=== PATIENT | female | born 2000 | race American Indian/Alaskan Native ===

== ENCOUNTER 2020-09-06 18:54 | Emergency (ER) | payer SELFPAY ==
[2020-09-06 20:14] VITALS: BP 104/57
--- NOTE | 2020-09-06 20:20 | Emergency Department Report ---
ED Recheck HPI - General Chief Complaint: Medical Clearance Stated Complaint: SEIZURE MED REFILL Time Seen by Provider: 09/06/20 20:15 Source: patient Mode of arrival: Ambulatory Limitations: No Limitations - History of Present Illness Initial Comments: Patient is a 19-year-old female presents emergency room for seizure medication refill. She states that she is supposed to be taking Trileptal 300 mg twice daily. She states that she has been out of her medication for 2 days. She states that she was just concerned and felt like she was going to have a seizure but has not had a seizure. She denies any symptoms at all currently. No other past medical history. No allergies to medications. Last menstrual cycle 08/23/2020. She has a prescription bottle with her. She states that her primary care doctor in [place] was previously prescribing her this medication. She states that she moved 1 month ago. - Related Data Previous Rx's Medication Instructions Recorded Last Taken Type OXcarbazepine [Trileptal] 300 mg PO BID #60 tablet 09/06/20 Unknown Rx Allergies Allergy/AdvReac Type Severity Reaction Status Date / Time No Known Allergies Allergy Unverified 09/06/20 20:36 ED Review of Systems ROS: Stated complaint: SEIZURE MED REFILL Other details as noted in HPI Comment: All other systems reviewed and negative ED Past Medical Hx - Past Medical History Previous Medical History?: Yes Hx Seizures: Yes - Surgical History Past Surgical History?: No - Social History Smoking Status: Never Smoker Substance Use Type: None - Medications Home Medications: Home Medications Medication Instructions Recorded Confirmed Last Taken Type OXcarbazepine [Trileptal] 300 mg PO BID #60 tablet 09/06/20 Unknown Rx ED Physical Exam - General Limitations: No Limitations General appearance: alert, in no apparent distress - Head Head exam: Present: atraumatic, normocephalic - Eye Eye exam: Present: normal appearance - ENT ENT exam: Present: mucous membranes moist - Respiratory Respiratory exam: Absent: respiratory distress, accessory muscle use - Neurological Exam Neurological exam: Present: alert, oriented X3 - Psychiatric Psychiatric exam: Present: normal affect, normal mood - Skin Skin exam: Present: warm, dry, intact ED Course Vital Signs 09/06/20 20:02 Temperature 99.4 F Pulse Rate 86 Respiratory 18 Rate Blood Pressure 104/57 O2 Sat by Pulse 99 Oximetry ED Recheck [facility] - Medical Decision Making Patient is a 19-year-old female presents emergency room for seizure medication refill. She states that she is supposed to be taking Trileptal 300 mg twice daily. She states that she has been out of her medication for 2 days. She states that she was just concerned and felt like she was going to have a seizure but has not had a seizure. She denies any symptoms at all currently. No other past medical history. No allergies to medications. Last menstrual cycle 08/23/2020. She has a prescription bottle with her. She states that her primary care doctor in [place] was previously prescribing her this medication. She states that she moved 1 month ago. Vitals are normal. Patient given refill of her home medication. Advised patient Please take medication as prescribed. Follow-up with your primary care doctor for management of your condition. Return to emergency room for new or symptoms. Critical care attestation.: If time is entered above; I have spent that time in minutes in the direct care of this critically ill patient, excluding procedure time. ED Disposition Clinical Impression: Medication refill, Hx of seizure disorder Disposition: DC-01 TO HOME OR SELFCARE Is pt being admited?: No Does the pt Need Aspirin: No Condition: Stable Additional Instructions: Please take medication as prescribed. Follow-up with your primary care doctor for management of your condition. Return to emergency room for new or symptoms. Prescriptions: OXcarbazepine [Trileptal] 300 mg PO BID #60 tablet Referrals: MARIJA DUNN MD [Staff Physician] - 3-5 Days [facility] [Provider Group] - 3-5 Days [facility], [LAB/CONTRACT] - 3-5 Days [facility] [Outside] - 3-5 Days Time of Disposition: 20:18 Print Language: TURKMEN
== END 2020-09-06 20:38 | disposition home or self-care (01) ==
LOC: ED 18:54
DX: G40.909 Epilepsy, unspecified, not intractable, without status epilepticus (principal); Z79.899 Other long term (current) drug therapy; Z76.0 Encounter for issue of repeat prescription
CPT/HCPCS: 99281

== ENCOUNTER 2020-10-30 17:10 | Emergency (ER) | payer SELFPAY ==
[2020-10-30 17:47] VITALS: BP 100/71
--- NOTE | 2020-10-30 18:01 | Emergency Department Report ---
ED General Adult HPI - General Chief complaint: Seizure Stated complaint: SEIZURE Time Seen by Provider: 10/30/20 17:56 Source: patient Mode of arrival: Ambulatory Limitations: No Limitations - History of Present Illness Initial comments: Patient presents to the ER requesting a refill on her seizure medication. Patient states that she takes Trileptal and she took her last tablet yesterday. Patient states that she recently moved here from [facility] does not currently have a local primary care doctor. Patient denies any recent seizures. She denies any symptoms currently. MD Complaint: Medication refill -: days(s) (1) - Related Data Previous Rx's Medication Instructions Recorded Last Taken Type OXcarbazepine [Trileptal] 300 mg PO BID #90 tablet 10/30/20 Unknown Rx Allergies Allergy/AdvReac Type Severity Reaction Status Date / Time No Known Allergies Allergy Unverified 09/06/20 20:36 ED Review of Systems ROS: Stated complaint: SEIZURE Other details as noted in HPI Comment: All other systems reviewed and negative Constitutional: denies: chills, fever Eyes: denies: eye pain, eye discharge, vision change ENT: denies: ear pain, throat pain Respiratory: denies: cough, shortness of breath, wheezing Cardiovascular: denies: chest pain, palpitations Gastrointestinal: denies: abdominal pain, nausea, diarrhea Genitourinary: denies: urgency, dysuria, frequency, hematuria, discharge, abnormal menses, dyspareunia Musculoskeletal: denies: back pain, joint swelling, arthralgia Neurological: denies: headache, weakness, numbness, paresthesias, confusion, abnormal gait, vertigo Psychiatric: denies: anxiety, depression, visual hallucinations, homicidal thoughts, suicidal thoughts Hematological/Lymphatic: denies: easy bleeding, easy bruising ED Past Medical Hx - Past Medical History Previous Medical History?: Yes Hx Seizures: Yes - Surgical History Past Surgical History?: No - Social History Smoking Status: Never Smoker Substance Use Type: None - Medications Home Medications: Home Medications Medication Instructions Recorded Confirmed Last Taken Type OXcarbazepine [Trileptal] 300 mg PO BID #90 tablet 10/30/20 Unknown Rx ED Physical Exam - General Limitations: No Limitations General appearance: alert, in no apparent distress - Head Head exam: Present: atraumatic, normocephalic, normal inspection - Eye Eye exam: Present: normal appearance, PERRL, EOMI Pupils: Present: normal accommodation - Neck Neck exam: Present: normal inspection, full ROM - Respiratory Respiratory exam: Absent: respiratory distress - Cardiovascular Cardiovascular Exam: Present: regular rate - Neurological Exam Neurological exam: Present: alert, oriented X3, CN II-XII intact, normal gait - Psychiatric Psychiatric exam: Present: normal affect, normal mood - Skin Skin exam: Present: intact ED Course Vital Signs 10/30/20 17:44 Temperature 98.4 F Pulse Rate 71 Respiratory 18 Rate Blood Pressure 100/71 [Right] O2 Sat by Pulse 98 Oximetry Critical care attestation.: If time is entered above; I have spent that time in minutes in the direct care of this critically ill patient, excluding procedure time. ED Disposition Clinical Impression: Medication refill, Hx of seizure disorder Disposition: TO HOME OR SELFCARE Is pt being admited?: No Does the pt Need Aspirin: No Condition: Stable Instructions: Medicine Refill at the Emergency Department Additional Instructions: Start taking medications today. FOllow up with PCP. Return to ED if worse. Prescriptions: OXcarbazepine [Trileptal] 300 mg PO BID #90 tablet Referrals: MARIJA DUNN MD [Staff Physician] - 3-5 Days [facility] [Provider Group] - 3-5 Days Time of Disposition: 18:01
== END 2020-10-30 18:23 | disposition home or self-care (01) ==
LOC: ED 17:10
DX: G40.909 Epilepsy, unspecified, not intractable, without status epilepticus (principal); Z76.0 Encounter for issue of repeat prescription; Z79.899 Other long term (current) drug therapy
CPT/HCPCS: 99281

== ENCOUNTER 2021-01-21 03:15 | Emergency (ER) | payer OTHER ==
[2021-01-21 04:07] VITALS: BP 105/73
--- NOTE | 2021-01-21 04:07 | Emergency Department Report ---
ED General Adult HPI - General Chief complaint: Medical Clearance Stated complaint: SEIZURE Source: patient Mode of arrival: Ambulatory Limitations: No Limitations - History of Present Illness Initial comments: Patient is a 20-year-old -[place]ian female with a history of seizures who presents to the ED for medication refill after she ran out of her medications 2 days ago. Patient states that she may have experienced a seizure episode about 2 hours ago while asleep at home and decided come to the ED for a refill of her prescriptions. Patient states that she recently relocated to [facility] and has not established care with any neurologist at this time. Patient denies dizziness, syncope, chest pain, headache, change in vision, nausea and vomiting, abdominal pain, fever or chills, head injury or fall, palpitations, chest pain or shortness of breath. MD Complaint: Seizure disorder, medication refill -: Sudden, days(s) (2) Location: head Radiation: non-radiation Severity scale (0 -10): 0 Consistency: intermittent Improves with: none Worsens with: none Associated Symptoms: denies other symptoms, seizure. denies: confusion, chest pain, cough, diaphoresis, fever/chills, headaches, loss of appetite, malaise, nausea/vomiting, rash, shortness of breath, syncope, weakness, other Treatments Prior to Arrival: NSAID - Related Data Previous Rx's Medication Instructions Recorded Last Taken Type OXcarbazepine [Trileptal] 300 mg PO BID #120 tablet 01/21/21 Unknown Rx Allergies Allergy/AdvReac Type Severity Reaction Status Date / Time No Known Allergies Allergy Unverified 09/06/20 20:36 ED Review of Systems ROS: Stated complaint: SEIZURE Other details as noted in HPI Constitutional: denies: chills, fever Eyes: denies: eye pain, eye discharge, vision change ENT: denies: ear pain, throat pain, congestion Respiratory: denies: cough, shortness of breath, SOB with exertion, wheezing Cardiovascular: denies: chest pain, palpitations Endocrine: no symptoms reported Gastrointestinal: denies: abdominal pain, nausea, vomiting, diarrhea Genitourinary: denies: urgency, dysuria, discharge Musculoskeletal: denies: back pain, joint swelling, arthralgia Skin: denies: rash, lesions Neurological: other (seizures). denies: headache, weakness, paresthesias Psychiatric: denies: anxiety, depression, auditory hallucinations, visual hallucinations, suicidal thoughts Hematological/Lymphatic: denies: easy bleeding, easy bruising ED Past Medical Hx - Past Medical History Hx Seizures: Yes - Social History Smoking Status: Never Smoker Substance Use Type: None - Medications Home Medications: Home Medications Medication Instructions Recorded Confirmed Last Taken Type OXcarbazepine [Trileptal] 300 mg PO BID #120 tablet 01/21/21 Unknown Rx ED Physical Exam - General Limitations: No Limitations General appearance: alert, in no apparent distress - Head Head exam: Present: atraumatic, normocephalic, normal inspection - Eye Eye exam: Present: normal appearance, PERRL, EOMI Pupils: Present: normal accommodation - ENT ENT exam: Present: normal exam, normal orophraynx, mucous membranes moist, TM's normal bilaterally, normal external ear exam - Neck Neck exam: Present: normal inspection, full ROM - Respiratory Respiratory exam: Present: normal lung sounds bilaterally. Absent: respiratory distress, wheezes, rales, rhonchi, chest wall tenderness, accessory muscle use, decreased breath sounds - Cardiovascular Cardiovascular Exam: Present: regular rate, normal rhythm, normal heart sounds. Absent: systolic murmur, diastolic murmur, rubs, gallop - GI/Abdominal GI/Abdominal exam: Present: soft, normal bowel sounds. Absent: tenderness, hyperactive bowel sounds, hypoactive bowel sounds, organomegaly, mass - Extremities Exam Extremities exam: Present: normal inspection, full ROM, normal capillary refill - Back Exam Back exam: Present: normal inspection, full ROM. Absent: tenderness, CVA tenderness (R), CVA tenderness (L), muscle spasm, paraspinal tenderness, vertebral tenderness - Neurological Exam Neurological exam: Present: alert, oriented X3, CN II-XII intact, normal gait, reflexes normal - Psychiatric Psychiatric exam: Present: normal affect, normal mood - Skin Skin exam: Present: warm, dry, intact, normal color. Absent: rash ED Medical Decision Making - Medical Decision Making This is a 20-year-old -[place]ian female with a history of seizures who presents to the ED for medication refill after she ran out of her medications 2 days ago. Patient states that she may have experienced a seizure episode about 2 hours ago while asleep at home and decided come to the ED for a refill of her prescriptions. Patient states that she recently relocated to [facility] and has not established care with any neurologist at this time. In the ED, patient is alert and oriented x3 and is not in any distress. Patient is hemodynamically stable. Patient was discharged home with a refill of her seizure medications, and was given a referral to primary care physician and advised to ensure that she follows up with a primary care physician for evaluation and for possible referral to a local neurologist. Patient was otherwise advised return to the ED immediately if symptoms get worse. - Differential Diagnosis Seizures; anxiety; medication refill Critical care attestation.: If time is entered above; I have spent that time in minutes in the direct care of this critically ill patient, excluding procedure time. ED Disposition Clinical Impression: Seizure disorder, Encounter for medication refill Disposition: 01 HOME / SELF CARE / HOMELESS Is pt being admited?: No Does the pt Need Aspirin: No Condition: Stable Instructions: Seizure, Adult, [id number], Epilepsy, [id number] Additional Instructions: Take your regular medications, follow-up with your primary care physician in 5 to 7 days for reevaluation. Return to the ED immediately if symptoms get worse. Prescriptions: OXcarbazepine [Trileptal] 300 mg PO BID #120 tablet Referrals: MARIJA DUNN MD [Staff Physician] - 3-5 Days Time of Disposition: 04:04 Print Language: [place] CITIZEN
== END 2021-01-21 06:27 | disposition home or self-care (01) ==
LOC: ED 03:15
DX: G40.909 Epilepsy, unspecified, not intractable, without status epilepticus (principal); Z76.0 Encounter for issue of repeat prescription; Z79.899 Other long term (current) drug therapy
CPT/HCPCS: 99282